=== PATIENT | male | born 1950 | race Caucasian/White ===

== ENCOUNTER 2024-02-13 06:59 | Emergency (ER) | payer MEDICARE, SELFPAY ==
[2024-02-13] VITALS (40 sets, daily range): BP systolic 107–174; BP diastolic 42–105; PULSE 29–85; RESP 14–24; TEMP 35.7–36.6; O2SAT 94–99; BMI 26.6
--- NOTE | 2024-02-13 07:03 | NURSING ---
NO OLD EKGS
--- NOTE | 2024-02-13 07:15 | EKG12_ITS ---
Test Reason : LOW HR Blood Pressure : / mmHG Vent. Rate : 076 BPM Atrial Rate : 081 BPM P-R Int : 408 ms QRS Dur : 086 ms QT Int : 376 ms P-R-T Axes : 000 -11 041 degrees QTc Int : 423 ms Sinus rhythm with marked sinus arrhythmia with 1st degree A-V block +OCCASIONAL JUNCTIONAL BEAT Otherwise normal ECG Confirmed by Oz Blackwell ([id number]), primer expeditor and drier KASIA BRADY ([id number]) on 02/15/2024 9:07:27 AM Referred By: ZEB Confirmed By:Oz Blackwell
--- NOTE | 2024-02-13 07:18 | EDS_ITS ---
HPI History of Present Illness Chief Complaint: Palpitations Informant: patient Narrative Narrative: Patient presents via EMS from the [facility] secondary to chest pressure, indigestion, shortness of breath. Patient states symptoms developed sometime overnight. He alerted parents at the long-term this morning about his symptoms. On arrival EMS noted an EKG with a heart rate of 38 bpm. Appears he was in sinus rhythm with a first-degree AV block but was dropping every other beat. He was on 0.5 mg of atropine and currently heart rate is in the 70s. Patient denies any known medical problems but does admit he does not follow with a doctor regularly. [facility] Medical History no medical history no medical history Home Medications ?Medication ?Instructions ?Recorded ?Last Taken ?Type furosemide 40 mg tablet (Lasix) 40 mg PO DAILY 02/13/24 Unknown History lisinopril 20 1 tab PO QHS 02/13/24 Unknown History mg-hydrochlorothiazide 25 mg tablet potassium chloride 10 mEq 10 meq PO DAILY 02/13/24 Unknown History tablet,extended release(part/cryst) Allergy/AdvReac Type Severity Reaction Status Date / Time ibuprofen (From Motrin) Allergy Intermediate Swelling Verified 02/13/24 07:00 Social History Smoking Status: Former smoker ROS ROS ED Constitutional Constitutional ED: Denies chills or fever(s) Eyes Eyes: Denies discharge from eye(s) ENT ENT ED: Denies discharge from eye(s), rhinorrhea or sore throat Cardiovascular Cardiovascular: Reports chest pain and palpitations Respiratory/Chest Respiratory/Chest: Reports dyspnea; Denies cough Gastrointestinal Gastrointestinal: Denies abdominal pain, nausea or vomiting Genitourinary Genitourinary ED: Denies dysuria Musculoskeletal Musculoskeletal: Denies back pain or extremity pain Integumentary Denies Abrasions or rash Neurologic Neurologic: Denies headache(s) or weakness Psychiatric Psychiatric: Denies anxiety or depression Allergic/Immunologic Allergic/Immunologic ED: Denies lip swelling or urticaria EXAM Physical Exam Const Vital Signs: 02/13/24 07:01 02/13/24 07:26 02/13/24 08:00 Temperature 96.3 F L Temperature Source Temporal Pulse Rate 80 40 L Respiratory Rate 16 18 Blood Pressure 160/92 H 134/72 H Blood Pressure Mean 114 92 Pulse Ox 98 98 Oxygen Delivery Method Room Air Room Air Room Air 02/13/24 08:58 02/13/24 10:00 02/13/24 10:42 Temperature 97.2 F L Temperature Source Temporal Pulse Rate 34 L 30 L 29 L Respiratory Rate 18 18 Blood Pressure 174/66 H 131/68 H 107/70 Blood Pressure Mean 102 89 82 Pulse Ox 99 98 Oxygen Delivery Method Room Air Room Air Positive well nourished and well developed General Appearance ED: well developed HEENT Reports moist mucous membranes Eyes EOMs intact bilaterally Chest Wall inspection of chest normal and palpation of chest normal Resp normal respiratory effort and clear to auscultation bilaterally Cardio regular rate and regular rhythm GI soft to palpation and non-tender Extremity normal to inspection Neuro oriented x3 and no sensory deficits noted Motor Exam: strength 5/5 throughout Psych mental status grossly normal Skin no rashes or lesions noted MDM MDM MDM Narrative Medical decision making narrative: Patient was on hospital monitor. IV line initiated. Labwork obtained to evalua te for leukocytosis, anemia, and electrolyte derangement. EKG obtained to evaluate for cardiac arrhythmia/ischemia. Chest x-ray obtained to evaluate for acute lung pathology, cardiac size, or mediastinal abnormality. History & Record Review Discussion w/independent historian: Patient Lab Data Attestation: I reviewed the patient's lab results. Labs: Laboratory Results - last 24 hr 02/13/24 02/13/24 06:45 09:35 WBC 4.7 RBC 4.40 L Hgb 14.6 Hct 44.4 MCV 100.9 H MCH 33.2 H MCHC 32.9 RDW Std Deviation 46.8 H RDW Coeff of Eulalia 12.7 Plt Count 361 MPV 9.1 Immature Gran % (Auto) 0.200 Neut % (Auto) 53.1 Lymph % (Auto) 29.7 [place] % (Auto) 12.9 H Eos % (Auto) 3.0 Baso % (Auto) 1.1 H Absolute Neuts (auto) 2.5 Absolute Lymphs (auto) 1.41 Nucleated RBC % 0 Sodium 133 L Potassium 5.4 H Chloride 107 Carbon Dioxide 21.0 Anion Gap 5 BUN 61 H Creatinine 3.11 H Estim Creat Clear Calc 23.55 Est GFR (MDRD) Af Amer 25 L Est GFR (MDRD) Non-Af 21 L BUN/Creatinine Ratio 19.6 Glucose 94 Calcium 9.9 Troponin I High Sens 8 9 Radiography Chest X-Ray - ED: 1 View, Read by ED Physician, Chronic Changes and No Infiltrates Diagnostic Testing: Clinical Impression(s) from Imaging Studies Chest X-Ray 02/13/24 07:40 IMPRESSION: No focal infiltrate or edema. Electronically Signed: Davi Saavedra MD at 9:27 EDT Reading Location ID and State: [address] [place] [address] , Service support , EKG Initial EKG: Interpretation: Sinus Rhythm (Sinus at 76 with first-degree AV block. NC interval is 408. No acute ST change.) Follow-up EKG: Attestation: I personally reviewed and interpreted this EKG as follows: Interpretation: Sinus Rhythm (Sinus rhythm with ventricular to 48 bpm. Type I second-degree AV block noted. No ST change.) Treatment and Re-Evaluation :: CBC was a white count of 4.7 with a hemoglobin of 14.6. Chemistry studies significant for a sodium of 133 with a BUN of 61 and a creatinine of 3.11. I have no prior values available for comparison. Potassium is slightly elevated at 5.4. Initial troponin is normal at 8. Portable chest x-ray per my interpretation feels chronic changes with no evidence of infiltrate. No pneumothorax. EKGs have been sent to and discussed with cardiology. He does feel the patient has an unstable heart block with evidence of first and second-degree. Because we do not have anyone available to place a pacemaker this week and he did recommend transfer to a tertiary care facility. This was discussed with the patient. At this time patient is refusing a transfer and refusing a pacemaker. He states he just wants to be comfortable. He does not want CPR if his heart were to stop. He does not want to be placed on a ventilator. I spoke with cardiology and he agrees that the patient does not want any intervention, he could be transferred back to the long-term. I did take a DNR form in to discuss this with him and had the nurse with me. Patient now states that he changes his mind and does want a pacemaker. Discharge Plan Triage Chief Complaint: Palpitations ED Provider: Karla Thompson Dx/Rx/DC Orders Clinical Impression: Heart block AV second degree, Bradycardia Prescriptions: No Action furosemide [Lasix] 40 mg tablet 40 mg PO DAILY lisinopril-hydrochlorothiazide 20-25 mg tablet 1 tab PO QHS potassium chloride 10 mEq tablet,ER particles/crystals 10 meq PO DAILY Primary Care Provider: Care Physician,No Primary Referrals: Care Physician,No Primary [Primary Care Provider] - Print Language: Taiwanese Disposition Disposition: Acute Care Hospital Discharge Location: [facility]
--- NOTE | 2024-02-13 07:23 | EKG12_ITS ---
Test Reason : REPEAT Blood Pressure : / mmHG Vent. Rate : 048 BPM Atrial Rate : 068 BPM P-R Int : 000 ms QRS Dur : 086 ms QT Int : 420 ms P-R-T Axes : 089 -22 024 degrees QTc Int : 375 ms Critical Test Result: AV Block Sinus rhythm with 2nd degree A-V block (Mobitz I) Abnormal ECG Confirmed by Oz Blackwell ([id number]), publishing editor KASIA BRADY ([id number]) on 02/15/2024 9:07:47 AM Referred By: Confirmed By:Oz Blackwell
[2024-02-13 07:29] LABS: Absolute Lymphocyte Count 1.41 X10^3/uL (0.83-4.51); Absolute Neutrophil Count 2.5 X10^3/uL (2.0-7.7); Basophil# 0.05 X10^3/uL; Basophil% 1.1 % (0-1); Eosinophil# 0.14 X10^3/uL; Hematocrit 44.4 % (40-54); Hemoglobin 14.6 g/dL (13.0-16.5); Lymphocyte # 1.41 X10^3/ul (0.83-4.51); Lymphocyte % 29.7 % (19-41); Mean Corp Hgb Conc 32.9 g/dL (32-36); Mean Corpuscular Hgb 33.2 pg (27.0-32.0); Mean Corpuscular Volume 100.9 fL (80-94); Mean Platelet Vol. 9.1 fl (6.2-12.0); Monocyte# 0.61 X10^3/uL; Monocyte% 12.9 % (0-10); NRBC Flagged by Analyzer 0 % (0-5); Neutrophil # 2.52 X10^3/uL (2.7-7.7); Neutrophil % 53.1 % (47-70); Platelet Count 361 K/mm3 (150-450); RBC Distribution Width CV 12.7 % (11.6-14.6); RBC Distribution Width SD 46.8 fl (35.1-43.9); White Blood Count 4.7 K/mm3 (4.4-11.0)
[2024-02-13] MEDS: 0.9% Normal Saline (1000mL) 1,000 ML 150 ML IV ×2 (07:29→14:14)
--- NOTE | 2024-02-13 07:40 | RAD_ITS ---
STUDY: X-RAY CHEST REASON FOR EXAM: Male, 74 years old. Chest pain TECHNIQUE: Single AP portable view of the chest. COMPARISON: None. FINDINGS: The lungs are clear and hyperexpanded. There is no demonstrated pleural abnormality. Normal size heart. Normal mediastinum and silverio. Normal visualized pulmonary arteries. Normal visualized aortic arch and descending thoracic aorta. Normal visualized thoracic spine. Normal visualized ribs, clavicles, and shoulders. There is no demonstrated abnormality of the visualized soft tissue structures of the upper abdomen. RAD/Chest 1 View (Portable) IMPRESSION: No focal infiltrate or edema. Electronically Signed: Davi Saavedra MD at 9:27 EDT ,
[2024-02-13 07:45] LABS: Anion Gap 5 (5-15); BUN 61 mg/dL (7-18); BUN/Creat Ratio 19.6 RATIO (10-20); Calcium,Total 9.9 mg/dL (8.5-10.1); Chloride 107 mmol/L (98-107); Creatinine, Serum 3.11 mg/dL (0.70-1.30); EST Glomerular Filtration Rate 21 mL/min (>60); Est Glom Filt Rate - Afr Amer 25 mL/min (>60); Estimated Creatinine Clearance 23.55 ml/min; Glucose 94 mg/dL (74-106); Potassium 5.4 mmol/L (3.5-5.1); Sodium Level 133 mmol/L (136-145); Troponin-I HS (w/2H Reflex) 8 pg/mL (3.0-78.0)
--- NOTE | 2024-02-13 09:05 | NURSING ---
0830 CALLED [facility] FOR TRANSFER
--- NOTE | 2024-02-13 09:13 | NURSING ---
SACHI ROY, FOR DR JOSEPH
[2024-02-13 09:26] LABS: Reflex Troponin-HS? (from REC) Y
[2024-02-13 09:56] LABS: Troponin-I HS 9 pg/mL (3.0-78.0)
--- NOTE | 2024-02-13 11:01 | NURSING ---
[address] [facility] IS DR CORRAL, HOSPITALIST WAITING ON A BED
--- NOTE | 2024-02-13 14:24 | NURSING ---
CALLED [facility], TALKED TO JOSEFINA. NO BED YET
--- NOTE | 2024-02-13 17:18 | NURSING ---
CALLED [facility], TALKED TO JOSEFINA. NO BED YET
== END 2024-02-13 21:49 | disposition short-term general hospital (02) ==
PROVIDERS: Emergency Provider Emergency Medicine; Visit Provider Emergency Medicine
DX: I44.1 Atrioventricular block, second degree (principal); K30 Functional dyspepsia; Z87.891 Personal history of nicotine dependence; R06.02 Shortness of breath; R07.89 Other chest pain; Z79.899 Other long term (current) drug therapy; R00.1 Bradycardia, unspecified
CPT/HCPCS: 71045; 80048; 84484; 85025; 93005; 96360; 96361; 99285; J7030; A4216

== ENCOUNTER 2024-02-24 15:25 | Emergency (ER) | payer MEDICARE, SELFPAY ==
[2024-02-24] VITALS (8 sets, daily range): BP systolic 109–146; BP diastolic 67–78; PULSE 75–103; RESP 17–20; TEMP 36.4; O2SAT 94–95
--- NOTE | 2024-02-24 16:39 | EKG12_ITS ---
Test Reason : CP Blood Pressure : / mmHG Vent. Rate : 099 BPM Atrial Rate : 099 BPM P-R Int : 234 ms QRS Dur : 092 ms QT Int : 350 ms P-R-T Axes : 063 038 076 degrees QTc Int : 449 ms Sinus rhythm Abnormal ECG Confirmed by RUBY BACA MD ([id number]), newspaper copy editor RAIN GUILLERMO ([id number]) on 02/26/2024 9:32:53 AM Referred By: AUTUMN Confirmed By:RUBY BACA MD
--- NOTE | 2024-02-24 16:41 | ED.VIS.CHEST ---
HPI History of Present Illness Chief Complaint: Chest Pain Informant: patient Onset/Context/Timing Onset: Days Location: - (Near left pacemaker site.) Current Severity: Mild Maximum Severity: Mild Relieved By: Nothing Associated Symptoms: Negative for Nausea, Vomiting, Diaphoresis, Dyspnea, Cough, Fever, Lightheadedness or Palpitations Narrative Narrative: 74-year-old male on July 15 was seen here diagnosed bradycardia transferred to [facility] had a pacemaker placed. Today's he drank several beers she was Acticort because initially when the symptoms started when he got his pacemaker he was in snf. He told him he was having some chest discomfort descending the emergency department. He said now he is right on MMX discomfort he describes it around his pacemaker site. He denies any fall injury or trauma. No fever. No exertional chest pain or exertional dyspnea. He has no cardiac history besides a recent pacemaker and bradycardia. Prior Similar Symptoms: No Recent Illness/Hospitalization: Yes CVD Risk Factors: Positive for Smoking; Negative for Diabetes PE Risk Factors: Positive for Recent Travel/Surgery and Recent Immobilization; Negative for Prior DVT or PE, Cancer or OCP + Smoking + >/=35 TAD Risk Factors: Negative for Marfan's Syndrome [facility] Medical History Pacemaker Home Medications ?Medication ?Instructions ?Recorded ?Last Taken ?Type furosemide 40 mg tablet (Lasix) 40 mg PO DAILY 02/13/24 Unknown History lisinopril 20 1 tab PO QHS 02/13/24 Unknown History mg-hydrochlorothiazide 25 mg tablet potassium chloride 10 mEq 10 meq PO DAILY 02/13/24 Unknown History tablet,extended release(part/cryst) Allergy/AdvReac Type Severity Reaction Status Date / Time ibuprofen (From Motrin) Allergy Intermediate Swelling Verified 02/24/24 15:29 Social History Smoking Status: Current every day smoker tobacco type: cigarettes ROS ROS ED ROS Narrative Denies recent illness. Review of Systems ROS Unobtainable: Denies due to encephalopathy Constitutional Constitutional ED: Denies chills or fever(s) Eyes Eyes: Reports none ENT ENT ED: Reports ear pain Cardiovascular Cardiovascular: Reports as per HPI and chest pain Respiratory/Chest Respiratory/Chest: Denies cough or dyspnea Gastrointestinal Gastrointestinal: Denies abdominal pain Genitourinary Genitourinary ED: Denies dysuria or hematuria Musculoskeletal Musculoskeletal: Denies arthralgias Integumentary Denies abscess Neurologic Neurologic: Denies headache(s) Psychiatric Psychiatric: Denies anxiety Endocrine Endocrinology: Denies cold intolerance Hematologic/Lymphatic Hematologic/Lymphatic: Denies easy bleeding or easy bruising Allergic/Immunologic Allergic/Immunologic ED: Denies mouth swelling, tongue swelling or urticaria EXAM Physical Exam Narrative Exam Narrative: 74-year-old male no acute distress vital signs stable afebrile. Pulse ox 95% on room air no signs hypoxia. H EENT exam unremarkable. Neck nontender. Lungs clear. Heart regular rhythm no murmur. Rate about 100. Chest wall is a recently placed left-sided pacemaker. The incision is dry and clean. No redness or pus. No discharge. Chest wall nontender. Abdomen soft nontender. Moving all 4 extremities. Equal symmetrical radial pulses. 5 of 5 furnace maintenance strength. Dorsi plantarflexion intact. Calves are nontender without edema or cords. Neurologically is awake and alert no focal motor deficits. Currently he is really without symptoms. Const Vital Signs: 02/24/24 15:26 02/24/24 16:03 02/24/24 16:05 Temperature 97.5 F L Temperature Source Temporal Pulse Rate 103 H 97 Respiratory Rate 18 17 Respiratory Effort Normal Non-Labored Blood Pressure 109/74 116/78 Blood Pressure Mean 85 90 Pulse Ox 95 94 Oxygen Delivery Method Room Air Room Air 02/24/24 16:39 02/24/24 16:51 02/24/24 17:53 Temperature Temperature Source Pulse Rate 93 81 Respiratory Rate 20 H 20 H Respiratory Effort Blood Pressure 116/78 120/76 Blood Pressure Mean 90 90 Pulse Ox 95 95 Oxygen Delivery Method Room Air Room Air Room Air 02/24/24 18:45 02/24/24 20:00 Temperature Temperature Source Pulse Rate 77 77 Respiratory Rate 20 H 18 Respiratory Effort Blood Pressure 120/77 146/78 H Blood Pressure Mean 91 100 Pulse Ox 94 95 Oxygen Delivery Method Room Air Room Air Positive well nourished and well developed; Negative for cachectic, contractures or unkempt General Appearance ED: well developed and NAD; Negative for unkempt, cachectic, contractures or pallor Nutritional Appearance: Negative for cachectic HEENT Reports moist mucous membranes normocephalic and atraumatic; Negative for trauma or tenderness Eyes PERRL and EOMs intact bilaterally General Eye ED: Negative for pale conjunctiva or scleral icterus Neck no lymphadenopathy, supple and no JVD General: Negative for tenderness Chest Wall inspection of chest normal and palpation of chest normal Chest Narrative: Well-healing left-sided pacemaker placement. Dry and clean. Chest: Negative for tenderness Resp normal respiratory effort and clear to auscultation bilaterally Effort and Inspection: Negative for respiratory distress Auscultation: Negative for rales, rhonchi or wheezes Cardio regular rate, regular rhythm, S1 normal heart sound, S2 normal heart sound and no murmurs Peripheral Pulses: pulses 2+ throughout GI normal to inspection, nondistended, normoactive bowel sounds, soft to palpation, non-tender, non-distended and no masses Back/Spine no CVA tenderness and no thoracic nor lumbar tenderness Extremity normal to inspection General Extremety ED: Negative for edema, pulses abnormal or tenderness General Extremity: Negative for edema or pulses abnormal Neuro oriented x3 and CN's II-XII intact bilaterally Sensorium / Orientation: awake, alert, oriented to person, oriented to place and oriented to time; Negative for confused, lethargic or stuporous Psych mental status grossly normal Appearance: Negative for unkempt Attitude: No agitated Mood & Affect: Negative for depressed, anxious or tearful Skin no rashes or lesions noted and no wounds General Skin Exam: Negative for jaundice or pallor Rashes: No rashes noted Trauma: Negative for abrasion or laceration MDM MDM MDM Narrative Medical decision making narrative: 73-year-old male with chest pain I think is just at his pacemaker site. And only his cardiac. Only is a PE. Undergo cardiac workup. His pacemaker site is dry and clean. He also said he is been drinking today alcohol level be obtained. Repeat exam patient doing well at 9:10 PM. Will be discharged home. Outpatient follow-up as needed. History & Record Review Discussion w/independent historian: Patient Lab Data Attestation: I reviewed the patient's lab results. Lab results narrative: CBC normal. White count of 5. H&H 13 and 38. Platelets 262. Electrolytes sodium 134. Gap 12. BUN and creatinine 22 and 1.46. Glucose 114. Troponin 8. Alcohol level negative. Labs: Laboratory Results - last 24 hr 02/24/24 02/24/24 16:44 16:45 WBC 5.8 RBC 4.06 L Hgb 13.2 Hct 38.9 L MCV 95.8 H MCH 32.5 H MCHC 33.9 RDW Std Deviation 42.8 RDW Coeff of Eulalia 12.3 Plt Count 262 MPV 9.2 Immature Gran % (Auto) 0.300 Neut % (Auto) 65.4 Lymph % (Auto) 20.7 [place] % (Auto) 9.8 Eos % (Auto) 3.1 Baso % (Auto) 0.7 Absolute Neuts (auto) 3.8 Absolute Lymphs (auto) 1.20 Nucleated RBC % 0 Sodium 134 L Potassium 3.6 Chloride 103 Carbon Dioxide 19.0 L Anion Gap 12 BUN 22 H Creatinine 1.46 H Est GFR (MDRD) Af Amer 61 Est GFR (MDRD) Non-Af 50 L BUN/Creatinine Ratio 15.1 Glucose 114 H Calcium 9.5 Troponin I High Sens 8 Ethyl Alcohol < 3.0 Radiography Chest X-Ray - ED: 1 View, Read by ED Physician, Read by Radiologist, Heart, Lungs, Mediastinum, Bony Structures, No Acute Disease and Chronic Changes Diagnostic Testing: Clinical Impression(s) from Imaging Studies Chest X-Ray 02/24/24 16:55 IMPRESSION: 1. Interval placement of left subclavian pacemaker with no pneumothorax. 2. Emphysema without pneumonia or atelectasis. Electronically Signed: Felice Singh MD at 17:06 EDT Reading Location ID and State: [address] [place] [address] Tel , Service support , Chest x-ray, portable, single view interpreted by myself and radiologist shows a left-sided pacemaker. Chronic changes no acute process. Normal cardiac silhouette. Normal lung garcia. Chronic changes. Rhythm Strip Rhythm Strip: Paced Rate: 99 Ectopy: None EKG Initial EKG: Attestation: I personally reviewed and interpreted this EKG as follows: Interpretation: Paced Comments: Paced at 99. Discharge Plan Triage Chief Complaint: Chest Pain ED Provider: Trenton Perla Dx/Rx/DC Orders Clinical Impression: Chest pain, History of pacemaker Instructions: ED Chest Pain, Uncertain Cause Prescriptions: No Action furosemide [Lasix] 40 mg tablet 40 mg PO DAILY lisinopril-hydrochlorothiazide 20-25 mg tablet 1 tab PO QHS potassium chloride 10 mEq tablet,ER particles/crystals 10 meq PO DAILY Primary Care Provider: Care Physician,No Primary Referrals: Care Physician,No Primary [Primary Care Provider] - Activity Restrictions/Additional Instructions: Your labs chest x-ray and EKG were unremarkable. I think the discomfort is just from the pacemaker. Everything looks good. Outpatient follow-up as needed. Return if worse. Print Language: Maltese Disposition Disposition: Home, Self Care
--- NOTE | 2024-02-24 16:55 | RAD_ITS ---
STUDY: X-RAY CHEST REASON FOR EXAM: Male, 74 years old. chest pain TECHNIQUE: Single AP portable view of the chest. COMPARISON: 02/13/2024 FINDINGS: Interval placement of left subclavian pacemaker with no pneumothorax. There is hyperinflation of the lungs consistent with chronic obstructive lung disease (COPD). There is no demonstrated pleural abnormality. Normal size heart. Normal mediastinum and silverio. Normal visualized pulmonary arteries. Normal visualized aortic arch and descending thoracic aorta. Normal visualized thoracic spine. Normal visualized ribs, clavicles, and shoulders. There is no demonstrated abnormality of the visualized soft tissue structures of the upper abdomen. RAD/Chest 1 View (Portable) IMPRESSION: 1. Interval placement of left subclavian pacemaker with no pneumothorax. 2. Emphysema without pneumonia or atelectasis. Electronically Signed: Felice Singh MD at 17:06 EDT ,
[2024-02-24 16:57] LABS: Absolute Neutrophil Count 3.8 X10^3/uL (2.0-7.7); Basophil# 0.04 X10^3/uL; Basophil% 0.7 % (0-1); Eosinophil# 0.18 X10^3/uL; Eosinophils% 3.1 % (0-5); Hematocrit 38.9 % (40-54); Hemoglobin 13.2 g/dL (13.0-16.5); Lymphocyte % 20.7 % (19-41); Mean Corp Hgb Conc 33.9 g/dL (32-36); Mean Corpuscular Hgb 32.5 pg (27.0-32.0); Mean Corpuscular Volume 95.8 fL (80-94); Mean Platelet Vol. 9.2 fl (6.2-12.0); Monocyte# 0.57 X10^3/uL; Monocyte% 9.8 % (0-10); NRBC Flagged by Analyzer 0 % (0-5); Neutrophil # 3.78 X10^3/uL (2.7-7.7); Neutrophil % 65.4 % (47-70); Platelet Count 262 K/mm3 (150-450); RBC Distribution Width CV 12.3 % (11.6-14.6); RBC Distribution Width SD 42.8 fl (35.1-43.9); Red Blood Count 4.06 M/mm3 (4.6-6.2); White Blood Count 5.8 K/mm3 (4.4-11.0)
[2024-02-24 17:33] LABS: Anion Gap 12 (5-15); BUN 22 mg/dL (7-18); BUN/Creat Ratio 15.1 RATIO (10-20); Calcium,Total 9.5 mg/dL (8.5-10.1); Chloride 103 mmol/L (98-107); Creatinine, Serum 1.46 mg/dL (0.70-1.30); EST Glomerular Filtration Rate 50 mL/min (>60); Est Glom Filt Rate - Afr Amer 61 mL/min (>60); Glucose 114 mg/dL (74-106); Potassium 3.6 mmol/L (3.5-5.1); Sodium Level 134 mmol/L (136-145); Troponin-I HS 8 pg/mL (3.0-78.0)
[2024-02-24 17:57] LABS: Alcohol, Blood (Medical)-Serum < 3.0 mg/dL
== END 2024-02-24 21:23 | disposition home or self-care (01) ==
PROVIDERS: Emergency Provider Emergency Medicine; Visit Provider Emergency Medicine
DX: R07.9 Chest pain, unspecified (principal); F17.210 Nicotine dependence, cigarettes, uncomplicated; Z95.0 Presence of cardiac pacemaker
CPT/HCPCS: 71045; 80048; 80320; 84484; 85025; 93005; 99284; A4216; G0480

== ENCOUNTER 2024-04-02 09:17 | Emergency (ER) | payer MEDICARE, SELFPAY ==
[2024-04-02 09:18] VITALS: BP 171/88; PULSE 76; RESP 14; TEMP 35.7; O2SAT 97
--- NOTE | 2024-04-02 09:29 | EKG12_ITS ---
Test Reason : DETOX Blood Pressure : / mmHG Vent. Rate : 064 BPM Atrial Rate : 064 BPM P-R Int : 224 ms QRS Dur : 098 ms QT Int : 422 ms P-R-T Axes : 032 022 015 degrees QTc Int : 435 ms Atrial-sensed ventricular-paced rhythm with prolonged AV conduction Abnormal ECG Confirmed by NILDA YANEZ, SAI ([id number]), assignment desk editor KASIA BRADY ([id number]) on 04/04/2024 9:38:00 AM Referred By: Confirmed By:KISHAN MUNGUIA MD
--- NOTE | 2024-04-02 09:52 | EX.ED.DYSGE1 ---
HPI History of Present Illness Chief Complaint: Substance Abuse Detail of Chief Complaint: Patient does not know why he is here. He was brought in by a friend. Informant: patient and friend Limited: dementia (Patient with longstanding history of memory impairment) Onset/Context/Timing Onset: - (History of drug use for years.) Context: - (Patient does not recall) Timing: - (Patient does not recall) Quality: He is uncertain what he is using. He does smoke, snort and inject drugs he Location: Not applicable Current Severity: Unable to determine because of memory impairment Maximum Severity: Unable to determine Worsened by: Unknown Relieved by: Unable to determine Associated Symptoms Associated Symptoms: Patient does not have recall Narrative Narrative: Patient is a 74-year-old male. He was recently evicted from his residence/apartment. He is now living at a friend's house. Friend states he has been incarcerated on 3 separate occasions due to drug use. Friend brought him here for help. As stated under the chief complaint he does not know why he is here. Presently patient denies headache, visual, ocular auditory symptoms. He denies cardiac or respiratory symptoms. He denies GI symptoms. Prior similar symptoms: Yes (Per friend) Recent Illness/Hospitalization: Yes (For pacemaker placement for symptomatic bradycardia) [facility] Medical History Pacemaker unable to obtain (Patient believes he has hypertension, he has history of symptomatic bradycardia. Will need to review records from outside hospital since patient has limited memory.) Home Medications ?Medication ?Instructions ?Recorded ?Last Taken ?Type furosemide 40 mg tablet (Lasix) 40 mg PO DAILY 02/13/24 Unknown History lisinopril 20 1 tab PO QHS 02/13/24 Unknown History mg-hydrochlorothiazide 25 mg tablet potassium chloride 10 mEq 10 meq PO DAILY 02/13/24 Unknown History tablet,extended release(part/cryst) Allergy/AdvReac Type Severity Reaction Status Date / Time ibuprofen (From Motrin) Allergy Intermediate Swelling Verified 04/02/24 09:18 Social History (Updated 04/02/24 @ 09:[address] Filipe Dey MD) household members: friend(s) Smoking Status: Current every day smoker tobacco type: cigarettes ROS ROS ED Review of Systems ROS Unobtainable: due to mental status Eyes Eyes: Denies blurry vision or change in vision ENT ENT ED: Denies rhinorrhea or sore throat Cardiovascular Cardiovascular: Denies chest pain or palpitations Respiratory/Chest Respiratory/Chest: Denies cough, dyspnea or dyspnea on exertion Gastrointestinal Gastrointestinal: Denies abdominal pain, nausea or vomiting Genitourinary Genitourinary ED: Denies dysuria or hematuria Musculoskeletal Musculoskeletal: Denies arthralgias or myalgias Integumentary Denies rash Neurologic Neurologic: Denies headache(s) or paresthesias Psychiatric Psychiatric: Denies anxiety Hematologic/Lymphatic Hematologic/Lymphatic: Reports systems reviewed and no addt'l complaints, except as documented EXAM Physical Exam Const Vital Signs: 04/02/24 09:18 Temperature 96.3 F L Temperature Source Temporal Pulse Rate 76 Respiratory Rate 14 Blood Pressure 171/88 H Blood Pressure Mean 115 Pulse Ox 97 Oxygen Delivery Method Room Air Positive well nourished, well developed and unkempt General Appearance ED: unkempt, well developed and NAD; Negative for cyanotic, diaphoretic or pallor HEENT Reports moist mucous membranes HEENT Narrative: Head is atraumatic and normocephalic. Ears normal. Nares patent. Posterior pharynx is normal. Eyes PERRL and EOMs intact bilaterally General Eye ED: Negative for pale conjunctiva or scleral icterus Neck no lymphadenopathy, supple and no JVD Resp normal respiratory effort and clear to auscultation bilaterally Cardio regular rate, regular rhythm, S1 normal heart sound, S2 normal heart sound and no murmurs Extremity normal to inspection General Extremety ED: Negative for edema or tenderness General Extremity: Negative for edema Neuro No oriented x3, CN's II-XII intact bilaterally and no sensory deficits noted Neuro Narrative: Patient is disoriented to time. Sensorium / Orientation: alert Motor Exam: strength 5/5 throughout Psych mental status grossly normal Appearance: unkempt Skin no wounds General Skin Exam: Negative for jaundice or pallor MDM MDM MDM Narrative Medical decision making narrative: Patient and friend were told that there is no inpatient detox for cocaine or methamphetamine. According to friend he uses different drugs. Will obtain talk screen determine if he is on any opiates or benzos which would qualify for admission. If his tox is positive for benzos, alcohol or opiates will speak with the patient and his friend who is presently residing with if he is willing to voluntarily come into the hospital for 5-day stay for detox. If only drug use is cocaine or methamphetamine will refer to [facility]. Blood pressure is noted to be elevated. Lab Data Labs: Laboratory Results - last 24 hr 04/02/24 09:45 WBC 5.3 RBC 4.11 L Hgb 13.5 Hct 40.7 MCV 99.0 H MCH 32.8 H MCHC 33.2 RDW Std Deviation 53.3 H RDW Coeff of [place] 14.7 H Plt Count 276 MPV 8.4 Immature Gran % (Auto) 0.400 Neut % (Auto) 62.0 Lymph % (Auto) 26.1 [place] % (Auto) 7.4 Eos % (Auto) 3.0 Baso % (Auto) 1.1 H Absolute Neuts (auto) 3.3 Absolute Lymphs (auto) 1.37 Nucleated RBC % 0 Sodium 139 Potassium 3.8 Chloride 109 H Carbon Dioxide 26.0 Anion Gap 4 L BUN 12 Creatinine 1.19 Estim Creat Clear Calc 2.14 Est GFR (MDRD) Af Amer 77 Est GFR (MDRD) Non-Af 64 BUN/Creatinine Ratio 10.1 Glucose 112 H Calcium 8.9 Total Bilirubin 0.50 AST 18 ALT 22 Alkaline Phosphatase 92 Total Protein 7.1 Albumin 3.3 Globulin 3.8 Albumin/Globulin Ratio 0.9 Urine Opiates Screen NEGATIVE Urine Methadone Screen NEGATIVE Ur Barbiturates Screen NEGATIVE Ur Phencyclidine Scrn NEGATIVE Ur Amphetamines Screen NEGATIVE MDMA (Ecstasy) Screen NEGATIVE U Benzodiazepines Scrn NEGATIVE Urine Cocaine Screen NEGATIVE U Cannabinoids Screen NEGATIVE Ur Drug Screen Comment Ethyl Alcohol < 3.0 EKG Initial EKG: Attestation: I personally reviewed and interpreted this EKG as follows: Interpretation: Paced (Atrial sensed ventricular paced rhythm with a prolonged AV conduction. The rate is 64. The OK interval is 224 ms. Cures duration is 98 ms. QT durations 422 ms. [place] is normal. This was obtained because of his cardiac history and the fact that he is a poor informant.) Treatment and Re-Evaluation :: manager pipeline was consulted since patient is presently homeless. His talk screen was negative. Therefore he has not used anything recently and does not need emergent hospitalization. He will need referral to [facility]. Comments:: Case management informed that they have talked to Mr. Pino. He was given resources. He is to follow-up with [facility]. He was also given information regarding housing. Discharge Plan Triage Chief Complaint: Substance Abuse ED Provider: Filipe Dey Dx/Rx/DC Orders Clinical Impression: Substance abuse, Gradual-onset memory impairment, Homeless single person, History of pacemaker, Hypertension Instructions: ED Confusion, ED Drug Abuse Prescriptions: No Action furosemide [Lasix] 40 mg tablet 40 mg PO DAILY lisinopril-hydrochlorothiazide 20-25 mg tablet 1 tab PO QHS potassium chloride 10 mEq tablet,ER particles/crystals 10 meq PO DAILY Primary Care Provider: Care Physician,No Primary Referrals: Care Physician,No Primary [Primary Care Provider] - Dipti Murry [Non-Staff] - 1-2 Weeks [facility] [Non-Staff] - As soon as possible Print Language: Uzbek Disposition Disposition: Home, Self Care
[2024-04-02 09:59] LABS: Absolute Lymphocyte Count 1.37 X10^3/uL (0.83-4.51); Absolute Neutrophil Count 3.3 X10^3/uL (2.0-7.7); Basophil# 0.06 X10^3/uL; Basophil% 1.1 % (0-1); Eosinophil# 0.16 X10^3/uL; Hematocrit 40.7 % (40-54); Hemoglobin 13.5 g/dL (13.0-16.5); Lymphocyte # 1.37 X10^3/ul (0.83-4.51); Lymphocyte % 26.1 % (19-41); Mean Corp Hgb Conc 33.2 g/dL (32-36); Mean Corpuscular Hgb 32.8 pg (27.0-32.0); Mean Platelet Vol. 8.4 fl (6.2-12.0); Monocyte# 0.39 X10^3/uL; Monocyte% 7.4 % (0-10); NRBC Flagged by Analyzer 0 % (0-5); Neutrophil # 3.25 X10^3/uL (2.7-7.7); Platelet Count 276 K/mm3 (150-450); RBC Distribution Width CV 14.7 % (11.6-14.6); RBC Distribution Width SD 53.3 fl (35.1-43.9); Red Blood Count 4.11 M/mm3 (4.6-6.2); White Blood Count 5.3 K/mm3 (4.4-11.0)
[2024-04-02 10:11] LABS: Alcohol, Blood (Medical)-Serum < 3.0 mg/dL
[2024-04-02 10:18] LABS: ALB/GLOB Ratio 0.9 RATIO (0.9-2.4); AST(SGOT) 18 U/L (15-37); Alanine Aminotransfer ALT/SGPT 22 U/L (16-61); Albumin, Serum 3.3 g/dL (3.2-5.0); Alkaline Phosphatase 92 U/L (45-117); Anion Gap 4 (5-15); BUN 12 mg/dL (7-18); BUN/Creat Ratio 10.1 RATIO (10-20); Calcium,Total 8.9 mg/dL (8.5-10.1); Chloride 109 mmol/L (98-107); Creatinine, Serum 1.19 mg/dL (0.70-1.30); EST Glomerular Filtration Rate 64 mL/min (>60); Est Glom Filt Rate - Afr Amer 77 mL/min (>60); Estimated Creatinine Clearance 2.14 ml/min; Globulin 3.8 g/dL (2.2-4.2); Glucose 112 mg/dL (74-106); Potassium 3.8 mmol/L (3.5-5.1); Protein, Total 7.1 g/dL (6.4-8.2); Sodium Level 139 mmol/L (136-145)
[2024-04-02 10:21] LABS: Amphetamine Urine VISTA NEGATIVE (<1000 ng/mL); Barbiturate Urine VISTA NEGATIVE (< 200 ng/mL); Benzodiazepine Urine VISTA NEGATIVE (< 200 ng/mL); Cocaine Urine VISTA NEGATIVE (< 300 ng/mL); Ecstacy Urine VISTA NEGATIVE (< 500 ng/mL); Methadone Urine VISTA NEGATIVE (< 300 ng/mL); PCP Urine VISTA NEGATIVE (< 25 ng/mL); THC Urine VISTA NEGATIVE (< 50 ng/mL); Vista UDS pH Range 6
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
[2024-04-02 11:18] VITALS: BP 174/92; PULSE 62; RESP 18; O2SAT 95
[2024-04-02 11:43] VITALS: BP 174/92; PULSE 62; RESP 18; TEMP 36.5; O2SAT 95
== END 2024-04-02 11:46 | disposition home or self-care (01) ==
PROVIDERS: Emergency Provider Emergency Medicine; Visit Provider Emergency Medicine
DX: F19.10 Other psychoactive substance abuse, uncomplicated (principal); F03.90 Unspecified dementia, unspecified severity, without behavioral disturbance, psychotic disturbance, mood disturbance, and anxiety; Z59.00 Homelessness unspecified; F17.210 Nicotine dependence, cigarettes, uncomplicated; Z95.0 Presence of cardiac pacemaker; I10 Essential (primary) hypertension
CPT/HCPCS: 80053; 80307; 82077; 85025; 93005; 99282

== ENCOUNTER → 2024-04-06 | Outpatient (CLI) | payer MEDICARE, SELFPAY ==
[2024-04-06 15:59] LABS: Absolute Lymphocyte Count 1.98 X10^3/uL (0.83-4.51); Absolute Neutrophil Count 4.8 X10^3/uL (2.0-7.7); Basophil# 0.07 X10^3/uL; Basophil% 0.9 % (0-1); Eosinophil# 0.18 X10^3/uL; Eosinophils% 2.4 % (0-5); Hematocrit 43.1 % (40-54); Hemoglobin 14.2 g/dL (13.0-16.5); Lymphocyte # 1.98 X10^3/ul (0.83-4.51); Lymphocyte % 26.3 % (19-41); Mean Corp Hgb Conc 32.9 g/dL (32-36); Mean Corpuscular Hgb 33.4 pg (27.0-32.0); Mean Corpuscular Volume 101.4 fL (80-94); Mean Platelet Vol. 8.4 fl (6.2-12.0); Monocyte# 0.51 X10^3/uL; Monocyte% 6.8 % (0-10); NRBC Flagged by Analyzer 0 % (0-5); Neutrophil # 4.75 X10^3/uL (2.7-7.7); Neutrophil % 63.2 % (47-70); Platelet Count 261 K/mm3 (150-450); RBC Distribution Width SD 55.2 fl (35.1-43.9); Red Blood Count 4.25 M/mm3 (4.6-6.2); White Blood Count 7.5 K/mm3 (4.4-11.0)
[2024-04-06 16:41] LABS: ALB/GLOB Ratio 0.8 RATIO (0.9-2.4); AST(SGOT) 22 U/L (15-37); Alanine Aminotransfer ALT/SGPT 25 U/L (16-61); Albumin, Serum 3.7 g/dL (3.2-5.0); Alkaline Phosphatase 100 U/L (45-117); Anion Gap 6 (5-15); BUN 12 mg/dL (7-18); BUN/Creat Ratio 10.7 RATIO (10-20); Calcium,Total 9.3 mg/dL (8.5-10.1); Chloride 105 mmol/L (98-107); Creatinine, Serum 1.12 mg/dL (0.70-1.30); EST Glomerular Filtration Rate 68 mL/min (>60); Est Glom Filt Rate - Afr Amer 82 mL/min (>60); Globulin 4.5 g/dL (2.2-4.2); Glucose 91 mg/dL (74-106); Potassium 4.6 mmol/L (3.5-5.1); Protein, Total 8.2 g/dL (6.4-8.2); Sodium Level 138 mmol/L (136-145)
[2024-04-06 17:05] LABS: Hepatitis C Antibody Non-Reactive (Nonreactive); Syphilis Antibodies Non-reactive; Vitamin B12 275 pg/mL (211-911)
[2024-04-13 14:09] LABS: HOMOCYSTEINE 28.8 umol/L (0.0-19.2); Methylmalonic Acid Bld 304 nmol/L (0-378)
== END | disposition home or self-care (01) ==
LOC: POLAB3 15:29
PROVIDERS: PCP Family Medicine Geriatric Medicine; Visit Provider Family Medicine Geriatric Medicine
DX: Z13.89 Encounter for screening for other disorder (principal); F14.10 Cocaine abuse, uncomplicated; E78.5 Hyperlipidemia, unspecified; E72.11 Homocystinuria
CPT/HCPCS: 36415; 80053; 82607; 82746; 83090; 83921; 84443; 85025; 86780; 86803